=== PATIENT | female | born 1950 | race Caucasian/White ===

== ENCOUNTER → 2025-01-02 13:32 | Outpatient (CLI) | payer MEDICARE, OTHER, SELFPAY ==
--- NOTE | 2025-01-02 13:33 | DI.MRI.S_ITS ---
PROCEDURE: MR KNEE LT WO CON INDICATIONS: left knee pain TECHNIQUE: Noncontrast sagittal PD fast spin echo and T2 fast spin echo with fat saturation, sagittal 3-D FLASH with fat saturation; coronal T1 spin echo and PD fast spin echo with fat saturation, and axial PD fast spin echo with fat saturation through the knee. COMPARISON: None. FINDINGS: Image quality: Diagnostic. Menisci: The medial meniscus is intact. Lateral meniscal central body free edge fraying Ligaments: The anterior and posterior cruciate ligaments are intact. The medial collateral ligament is intact. The fibular collateral ligament is intact. The posterolateral supporting structures are intact. Extensor Mechanism: Quadriceps tendon is intact. The patellar tendon is intact. The patellar retinacula are intact. Osseous Structures: There is no fracture or dislocation. No suspicious marrow replacing process. Trace knee joint effusion. Hoffa's fat pad is unremarkable. Intra- articular ganglion cyst within the lateral femoral recess (series 8, image 12; sagittal series 10, image 24). Articular Cartilage: Patellofemoral compartment: Focal deep fraying of the medial patellar facet superficial thinning and fraying of the trochlear articular cartilage. No full-thickness defect. Medial compartment: Focal deep thinning of the posterior condylar articular cartilage, of the area of grade 3 articular cartilage damage measures up to 15 x 8 mm. Lateral compartment: Cartilage of the lateral tibiofemoral compartment is intact. Other: The visualized muscles and tendons appear normal for age. Moderate Araiza's cyst with fluid tracking along the posterior medial superficial compartment the lower leg. Normal neurovascular signal. Subcutaneous soft tissues appear normal. IMPRESSION: 1. 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 2. Focal fraying of the medial patellar facet articular cartilage. 3. Free edge fraying of the lateral meniscal central body. No acute tear. 4. Moderate leaking Araiza's cyst. 5. Intra-articular 3 cm ganglion cyst along the lateral femoral epicondyle. Dictated by: Cristo Guerrier M.D. on 01/02/2025 at 14:26 Approved by: Cristo Guerrier M.D. on 01/02/2025 at 14:33
== END ==
LOC: MRI 13:33
PROVIDERS: PCP Family Medicine; Referring Provider Orthopaedic Surgery Adult Reconstructive Orthopaedic Surgery; Visit Provider Orthopaedic Surgery Adult Reconstructive Orthopaedic Surgery
DX: M94.262 Chondromalacia, left knee (principal); M71.22 Synovial cyst of popliteal space [Baker], left knee; M67.462 Ganglion, left knee; M25.562 Pain in left knee
CPT/HCPCS: 73721